=== PATIENT | male | born 1945 | race Caucasian/White ===

== ENCOUNTER → 2024-04-04 16:08 | Outpatient (REF) | payer OTHER, SELFPAY | LOC: RCS 16:08 | PROVIDERS: ATTENDING PHYSICIAN Nurse Practitioner Family | DX: I25.10 Atherosclerotic heart disease of native coronary artery without angina pectoris (principal); E11.29 Type 2 diabetes mellitus with other diabetic kidney complication | CPT/HCPCS: 93306 ==

== ENCOUNTER → 2024-04-06 07:43 | Outpatient (REF) | payer OTHER, SELFPAY | LOC: MRI 07:43 | PROVIDERS: ATTENDING PHYSICIAN Physician Assistant | DX: M54.16 Radiculopathy, lumbar region (principal); M54.12 Radiculopathy, cervical region | CPT/HCPCS: 72141; 72148 ==

== ENCOUNTER → 2024-04-22 15:41 | Outpatient (REF) | payer OTHER, SELFPAY | LOC: MRI 3T 15:41 | PROVIDERS: ATTENDING PHYSICIAN Nurse Practitioner Family | DX: I25.10 Atherosclerotic heart disease of native coronary artery without angina pectoris (principal); E11.29 Type 2 diabetes mellitus with other diabetic kidney complication; I71.40 Abdominal aortic aneurysm, without rupture, unspecified; I48.0 Paroxysmal atrial fibrillation; Z13.89 Encounter for screening for other disorder; E78.2 Mixed hyperlipidemia; Z86.73 Personal history of transient ischemic attack (TIA), and cerebral infarction without residual deficits; G43.009 Migraine without aura, not intractable, without status migrainosus; F41.1 Generalized anxiety disorder; F43.10 Post-traumatic stress disorder, unspecified; D47.2 Monoclonal gammopathy; R79.89 Other specified abnormal findings of blood chemistry; R53.83 Other fatigue; M48.061 Spinal stenosis, lumbar region without neurogenic claudication; R68.89 Other general symptoms and signs | CPT/HCPCS: 70553; A9575 ==

== ENCOUNTER → 2024-07-09 11:00 | Outpatient (REF) | payer OTHER, SELFPAY | LOC: RAD 11:00 | PROVIDERS: ATTENDING PHYSICIAN Surgery Vascular Surgery; FAMILY PHYSICIAN Nurse Practitioner Primary Care; REFERRING PHYSICIAN Surgery Vascular Surgery | DX: I65.21 Occlusion and stenosis of right carotid artery (principal); I71.9 Aortic aneurysm of unspecified site, without rupture | CPT/HCPCS: 71275; 74174; 93880; Q9967 ==

== ENCOUNTER → 2024-07-25 11:31 | Outpatient (REF) | payer OTHER, SELFPAY | LOC: DHCBC/DCA 11:31 | PROVIDERS: ATTENDING PHYSICIAN Nuclear Medicine Nuclear Cardiology | DX: I48.0 Paroxysmal atrial fibrillation (principal); I63.9 Cerebral infarction, unspecified; I45.10 Unspecified right bundle-branch block; R07.89 Other chest pain; R06.09 Other forms of dyspnea | CPT/HCPCS: 78452; 93017; A9500; J2785 ==

== ENCOUNTER 2024-11-21 12:24 | Emergency (ER) | payer OTHER, SELFPAY ==
[2024-11-21 13:09] LABS: % Basophils 0.1 % (0-2); % Eosinophils 0.1 % (0-6); % Immature Granulocytes 0.4 % (0-0.5); % Lymphocytes 3.7 % (20.5-51.1); % Neutrophils 87.7 % (42.2-75.2); Absolute Immature Granulocytes 0.1 10^3/uL (0-0.05); Absolute Lymphocytes 0.5 10^3/uL (1.2-3.4); Absolute Monocytes 1.1 10^3/uL (0.1-0.6); Absolute Neutrophils 11.9 10^3/uL (1.4-6.5); Hematocrit 40.7 % (39.0-52.0); Hemoglobin 13.5 g/dL (13.0-18.0); Mean Corp Hgb Conc. 33.2 g/dL (33.0-37.0); Mean Corpuscular Hgb 28.1 pg (27.0-31.0); Mean Corpuscular Volume 84.8 fL (80.0-94.0); Mean Platelet Volume 10.4 fL (7.4-10.4); Nucleated Red Blood Cells % 0 % (-); Platelet Count 109 10^3/uL (130-400); White Blood Cell Count 13.6 10^3/uL (4.8-10.8)
[2024-11-21 13:38] LABS: ALT (SGPT) 15 U/L (0-50); AST (SGOT) 44 U/L (17-59); Albumin 4.5 g/dl (3.5-5.0); Alkaline Phosphatase 443 U/L (38-126); Blood Urea Nitrogen 19 mg/dl (9-20); Calcium 9.2 mg/dl (8.4-10.2); Carbon Dioxide 23 mmol/L (22-30); Chloride 98 mmol/L (98-107); Glucose 166 mg/dl (70-99); Potassium 4.4 mmol/L (3.5-5.1); Sodium 135 mmol/L (135-145); Total Bilirubin 0.7 mg/dl (0.2-1.3); Total Protein 7.4 g/dl (6.3-8.2); eGFR > 60.00
[2024-11-21 14:17] VITALS: BP 180/107
--- NOTE | 2024-11-21 14:45 | ED.GENMED ---
History of Present Illness
General
Chief Complaint: Musculo-Skeletal Complaint
Source: patient
Exam Limitations: none
Time Seen by Provider: 11/21/24 14:04
Nursing documentation reviewed up to this point in time: agreed with
History of Present Illness
History of Present Illness:
79-year-old male with a past medical history as documented presents to the emergency room with his son for evaluation of back pain. Patient reports onset of symptoms a few months ago but they have been particularly bad over the past few weeks. He
had similar symptoms and was treated at [facility] last month. He denies any falls or trauma. He denies any injury or inciting event. He describes pain in the low back that radiates towards the left hip and shoots down to just above the knee.
Worse with movement. No relieving factors noted�he has been taking Tylenol without improvement. He denies any focal weakness or numbness in extremities. He does have radicular symptoms. He denies any saddle anesthesia. Denies any incontinence
of bowel or bladder. He denies any fevers or chills. He is on Eliquis.
Past History
Past History
ED Past Medical History: HTN, Other (Previous abdominal aortic aneurysm repair, bilateral iliac stents, recent type B intramural hematoma and dissection) and Other (Pneumothorax, AAA, kidney stone)
ED Past Surgical History: Other (abdominal surgery, stent placed for kidney stones)
Social History
Tobacco: Former smoker
Alcohol: Occasional
Drug: None
Personal:
Living: with family
Employment: Employed
Family History
Family History: Other (reviewed and non-contributory)
Review of Systems
Review of Systems
All Other Systems: ROS reviewed and negative except as documented in HPI and ROS
Constitutional: Denies fever or chills
Respiratory: Denies trouble breathing
Cardiac: Denies chest pain
ABD/GI: Denies abdominal pain, nausea or vomiting
: Denies flank pain
Musculoskeletal: Reports joint pain (hip pain) and back pain; Denies neck pain
Neurological: Denies headache, weakness or numbness
Phy Exam
Physical Exam
Physical Exam:
General: Awake, alert, oriented x3; no acute distress
Head: Normocephalic, atraumatic
Eyes: Conjunctiva normal
Throat: Airway intact, handling secretions
Neck: Trachea midline, supple without meningismus
Lungs: Clear to auscultation bilaterally, no wheezing, rales, rhonchi
Heart: Regular rate and rhythm, no murmurs, gallops, or rubs
Abd: Soft, non distended, nontender, no palpable mass
Back: No midline tenderness in the lumbar spine, mild paraspinal tenderness left lumbar region; has a positive straight leg raise on the left with bowstringing (symptoms relieved with flexion of the knee)
Neuro: Cranial nerves grossly intact, speech fluid, motor and sensory intact proximally distally in the lower extremities
Skin: no rash
Extremities: No edema in extremities, equal pulses in all extremities
Scores
Heart Failure Risk
Heart Failure Risk Score: Not Applicable
Heart Score for Chest Pain Patients
STEMI patient?: Not applicable
Withdrawal Assessment of Alcohol
Withdrawal Assessment Completed?: Not applicable
Course
Orders/Labs/Results
Orders:
Orders
11/21/24 12:45
Electrocardiogram (*1) Urgent
Reason for Study: Tachycardia
11/21/24 12:46
EKG- Treatment ONCE
11/21/24 12:58
Complete Blood Count/With Diff Urgent
Comprehensive Metabolic Panel Urgent
11/21/24 14:38
Oxycodone [Roxicodone] 5 mg PO NOW STA
Prednisone [Deltasone] 50 mg PO NOW STA
11/21/24 14:39
Pt Eval And Treat Urgent
Activity Level: With Assistance
11/21/24 14:40
CT Abd/pel Without Iv Or Oral Urgent
Comment:
Reason For Exam: left back pain rad to left hip
11/21/24 17:23
PSA Free & Total [S] Urgent
Protein Electrophoresis Reflex [S] Urgent
Serum Free Light Chains [Greer/Lambda FLC Quant] [S] Urgent
11/21/24 17:28
MR Lumbar Without Contrast Urgent
Comment:
Reason For Exam: back pain, leg weakness
Recent pill cam endoscopy?: No
MR Thoracic Spine Without Urgent
Comment:
Reason For Exam: back pain, leg weakness
Recent pill cam endoscopy?: No
Abnormal Lab Results
11/21/24
12:58
WBC 13.6 H 10^3/uL
(4.8-10.8)
Plt Count 109 L 10^3/uL
(130-400)
Abs Immat Gran (auto) 0.1 H 10^3/uL
(0-0.05)
Absolute Neuts (auto) 11.9 H 10^3/uL
(1.4-6.5)
Absolute Lymphs (auto) 0.5 L 10^3/uL
(1.2-3.4)
Absolute Monos (auto) 1.1 H 10^3/uL
(0.1-0.6)
Neutrophils % 87.7 H %
(42.2-75.2)
Lymphocytes % 3.7 L %
(20.5-51.1)
Glucose 166 H mg/dl
(70-99)
Alkaline Phosphatase 443 H U/L
(38-126)
11/21/24 12:58
11/21/24 12:58
Vital Signs
Initial and Last Documented VS:
Initial Vital Signs
Temp Pulse Resp Pulse Ox
37.1 C 130 18 98
11/21/24 12:41 11/21/24 12:41 11/21/24 12:41 11/21/24 12:41
Last Documented Vital Signs
Temp Pulse Resp BP Pulse Ox
37.0 C 129 16 195/115 97
11/21/24 17:34 11/21/24 17:34 11/21/24 14:17 11/21/24 17:34 11/21/24 17:34
MDM/Problems Addressed
Differential Diagnosis Includes:
Lumbar fracture, herniated disc/degenerative disease with sciatica, lower suspicion for retroperitoneal hematoma or nephrolithiasis, UTI
MDM/Problems Addressed:
79-year-old male presents for evaluation of low back pain with radicular symptoms ongoing for months but worse over the past few weeks. No inciting event noted. Hypertensive and tachycardic. Exam as above. Labs were sent in triage including a
CBC and a CMP�he did have a slight leukocytosis. Alk phos elevated. Will send for CT abdomen pelvis. Treat symptomatically. Check urinalysis. Reassess after the above.
CT reviewed unfortunately shows signs concerning for metastatic disease with sclerotic lesions T11, T12, S1 as well as left intertrochanteric and right ilium. I had a long discussion with the patient and his son�this is previously unknown to them,
he denies any known cancer history. We spoke about options at this point with this new diagnosis�I offered admission to the hospital to obtain more expeditious diagnostic workup however patient is rather adamant that he prefers to go home and
pursue outpatient workup and speak with his family about the plan going forward�I do not think this is unreasonable. Will reach out to oncology to ensure expeditious outpatient follow-up.
Discussed with oncology�will sign off PSA, protein electrophoresis, free light chains here and they will follow-up with him as an outpatient. Will also order an MRI here in the ER prior to discharge.
I had a long discussion with the patient�he does not wish to stay for MRI and is adamant that he wishes to be discharged after straight stick for additional lab work. He says he will not stay overnight. I did explain to him that I am a bit
concerned especially because he remains tachycardic and hypertensive. I explained that there are multiple things that can cause unexplained tachycardia that she feels that these vital sign abnormalities are due to anxiety and not wanting to be in
the emergency room. I pleaded with him to stay in the hospital so we can do more testing and monitoring but he is adamant that he wishes to leave and so in keeping with his wishes we will discharge him. I did speak to the oncologist as above to
expedite outpatient follow-up for the abnormalities noted on CT. I spoke to his son as well and his son assured me that he would keep an eye on his father, monitor heart rate and blood pressure at home. Urged patient to return with worsening
symptoms. All questions answered.
Acute Exacerbation and/or Progression of Chronic Illness:
Acutely hypertensive
Acute Exacerbation and/or Progression of Chronic Illness: HTN
*Radiology
Radiology exam reviewed: radiology read reviewed
*Pulse Oximetry
Patient hypoxic: no
*EKG
Interpreted by ED Provider?: Yes
Heart Rate: 124
Rate: tachycardiac
Rhythm: sinus tachycardia
[place]: normal axis
QRS Pattern: right bundle branch block
Ischemia: non-specific ST changes
*Critical Care Note
Total Time (30-74mins, 75-104mins- exclusive of procedures): Not Applicable
Data Reviewed
Source: patient and family
Patient Management
Social determinants of health affecting care: Strong social support
Discussion with other providers: [employer] (Discussed with oncologist)
Escalation/DeEscalation of care consider admission/obs:
Recommended admission but patient prefers to be discharged�discharge in keeping with his wishes but arranged for outpatient follow-up
ED Attending Note
-
Portions of this chart may have been created with voice recognition software.� Occasional wrong word or��sound alike� substitutions may have occurred due to the inherent limitations of voice recognition software.
Discharge Plan
Departure
Patient Disposition: Home (Routine Discharge)
Date of Disposition: 11/21/24
Time of Disposition: 17:44
Patient with high blood pressure during this ER visit?: Yes
Discharge Problem:
Hypertension, Back pain, Acute lumbar radiculopathy, Metastatic cancer to bone
Instructions: Bone metastases, BLOOD PRESSURE
Prescriptions:
New
oxycodone 5 mg tablet
5 mg PO TID PRN (Reason: Pain) Qty: 20 0RF
prednisone 10 mg Tablet
See Rx Instructions .ROUTE .COMPLEX Qty: 45 0RF
Rx Instructions:
Take By Mouth:
50 mg daily x3 days, 40 mg daily x3 days,
30 mg daily x3 days, 20 mg daily x3 days,
10 mg daily x3 days
No Action
omeprazole 20 MG capsule,delayed release(DR/EC)
40 mg PO DAILY
loperamide 2 MG capsule
2 mg PO TIDPRN PRN (Reason: diarrhea)
dicyclomine 10 MG capsule
10 mg PO TIDPRN PRN (Reason: abd cramping)
Patient Comments:
MORE THAN 1 WEEK AGO- PT UNSURE
acetaminophen [Tylenol Extra Strength] 500 MG tablet
1,000 mg PO Q6HPRN PRN (Reason: back pain, [place], fever > 100.4) 0RF
famotidine 40 MG tablet
40 mg PO HS
coenzyme [id number] E 1 CAP capsule
1 cap PO DAILY
cholecalciferol (vitamin D3) [Vitamin D3] 1,000 UNIT capsule
2,000 unit PO DAILY
eodzdeljur-lfabcbrqwsice-otpx [Fioricet] 1 EACH capsule
1 ea PO Q6H PRN (Reason: migraine)
omega 5-szp-gdv-fish oil [Fish Oil] 1 EACH capsule
1 ea PO DAILY
aspirin 81 MG tablet,chewable
81 mg PO DAILY
Referrals:
Luly Bond MD [Active] - Call in 1-3 days for appt (Oncology--if you do not receive a call by tomorrow at noon, please call the above number)
Gejer,Checo, DO [Family Provider] -
Activity Restrictions/Additional Instructions:
Thank you for visiting the Emergency Department at [facility].
1. Please schedule a follow up appointment as directed. Call first thing tomorrow morning to make an appointment.
2. If indicated, please take your medications as instructed and indicated on discharge paperwork.
3. If any of your symptoms do not improve, or persist, or become more severe within 6-12 hours, please return to the emergency department for further care.
4. Please return to the emergency department if you develop a headache, neck pain/stiffness, fever greater than 100.4F, chest pain, shortness of breath, persistent nausea, vomiting, slurred speech, difficulty walking, numbness/tingling, weakness,
signs of infection or any other symptoms that are worrisome to you.
Please call [phone] if you have any questions.
Interventions
Interventions:
*Risk Screen - Suicide Last Done: 11/21/24 14:14
*General Assessment Last Done: 11/21/24 14:14
*Neglect/Abuse Screening Last Done: 11/21/24 14:14
*ED COVID-19 Vaccine History Last Done: 11/21/24 14:14
ED-Musculoskeletal Assessment Last Done: 11/21/24 14:20
Discharge Date and Time
Print Language: SYRIAC
[2024-11-21] MEDS: DELTASONE 50 MG PO (14:46)
[2024-11-21] MEDS: ROXICODONE 5 MG PO (14:46)
[2024-11-21 17:34] VITALS: BP 195/115
[2024-11-23 13:34] LABS: Free Kappa Light Chains,Quant 87.22 mg/L (3.30-19.40); Free Lambda Light Chains,Quant 8.58 mg/L (5.71-26.30); Kappa/Lambda Fr Light Ratio 10.17 (0.26-1.65)
[2024-11-24 22:44] LABS: Albumin 4.08 g/dL (3.75-5.01); Alpha 1 Globulin 0.57 g/dL (0.19-0.46); Alpha 2 Globulin 1.03 g/dL (0.48-1.05); Monoclonal Protein 0.46 g/dL (<=0.00); SPEP IFE Reflex IFE Done; Total Protein-Electrophoresis 7.4 g/dL (6.3-8.2)
[2024-11-25 07:32] LABS: IgA 469 mg/dL (68-408); IgG 359 mg/dL (768-1632); IgM 40 mg/dL (35-263)
== END 2024-11-21 18:19 | disposition home or self-care (01) ==
LOC: EMR 12:24
PROVIDERS: Emergency Medicine; EMERGENCY PHYSICIAN Emergency Medicine; FAMILY PHYSICIAN Nuclear Medicine Nuclear Cardiology
DX: I10 Essential (primary) hypertension (principal); M54.9 Dorsalgia, unspecified; M54.16 Radiculopathy, lumbar region; C79.51 Secondary malignant neoplasm of bone; Z79.01 Long term (current) use of anticoagulants; Z87.442 Personal history of urinary calculi; Z87.891 Personal history of nicotine dependence
CPT/HCPCS: 99284; 74176; 80053; 82784; 83521; 84153; 84154; 84155; 84165; 85025; 86334; 93005

== ENCOUNTER → 2024-12-13 07:00 | Outpatient (REF) | payer OTHER, SELFPAY ==
[2024-12-13] VITALS (7 sets, daily range): BP systolic 73–180; BP diastolic 80–93
[2024-12-13 07:58] LABS: INR 1.01; PT 13.6 Sec (11.4-14.6)
== END ==
LOC: RADI 07:00
PROVIDERS: ATTENDING PHYSICIAN Internal Medicine Hematology & Oncology; FAMILY PHYSICIAN Nurse Practitioner Primary Care
DX: C79.51 Secondary malignant neoplasm of bone (principal); C61 Malignant neoplasm of prostate
CPT/HCPCS: 88307; 88311; 20225; 36415; 77012; 85610; 88333; 88334; 88341; 88342; 99152

== ENCOUNTER → 2024-12-27 12:12 | Outpatient (REF) | payer OTHER, SELFPAY | LOC: PET 12:12 | PROVIDERS: ATTENDING PHYSICIAN Internal Medicine Hematology & Oncology | DX: C61 Malignant neoplasm of prostate (principal) | CPT/HCPCS: 78815; A9595 ==

== ENCOUNTER → 2025-04-07 11:03 | Outpatient (REF) | payer OTHER, SELFPAY | LOC: RCS 11:03 | PROVIDERS: ATTENDING PHYSICIAN Nuclear Medicine Nuclear Cardiology; FAMILY PHYSICIAN Internal Medicine | DX: I10 Essential (primary) hypertension (principal); I77.810 Thoracic aortic ectasia; I34.0 Nonrheumatic mitral (valve) insufficiency | CPT/HCPCS: 93306 ==

== ENCOUNTER → 2025-04-12 10:38 | Outpatient (REF) | payer OTHER, SELFPAY | LOC: RAD 10:38 | PROVIDERS: ATTENDING PHYSICIAN Internal Medicine Hematology & Oncology; FAMILY PHYSICIAN Internal Medicine | DX: C61 Malignant neoplasm of prostate (principal); D47.2 Monoclonal gammopathy; D64.9 Anemia, unspecified | CPT/HCPCS: 73700 ==

== ENCOUNTER → 2025-07-01 12:10 | Outpatient (REF) | payer OTHER, SELFPAY | LOC: HWRAD 12:10 | PROVIDERS: ATTENDING PHYSICIAN Surgery Vascular Surgery; FAMILY PHYSICIAN Internal Medicine | DX: R22.1 Localized swelling, mass and lump, neck (principal); I65.21 Occlusion and stenosis of right carotid artery | CPT/HCPCS: 76536; 93880 ==

== ENCOUNTER → 2025-07-18 11:04 | Outpatient (REF) | payer OTHER, SELFPAY | LOC: RAD 11:04 | PROVIDERS: ATTENDING PHYSICIAN Surgery Vascular Surgery; FAMILY PHYSICIAN Internal Medicine | DX: I65.21 Occlusion and stenosis of right carotid artery (principal); I73.9 Peripheral vascular disease, unspecified | CPT/HCPCS: 93922 ==

== ENCOUNTER → 2025-08-21 11:31 | Outpatient (REF) | payer OTHER, SELFPAY | LOC: RAD 11:31 | PROVIDERS: ATTENDING PHYSICIAN Surgery Vascular Surgery; FAMILY PHYSICIAN Internal Medicine | DX: I71.9 Aortic aneurysm of unspecified site, without rupture (principal); I71.40 Abdominal aortic aneurysm, without rupture, unspecified | CPT/HCPCS: 71275; 74174; Q9967 ==